=== PATIENT | male | born 1950 ===

== ENCOUNTER 2021-11-14 16:23 | Emergency (ER) | payer OTHER ==
[2021-11-14] MEDS ORDERED: LORazepam 2 MG/ML SDV IVPUSH ONE (17:34)
[2021-11-14] MEDS ORDERED: LORazepam 2 MG/ML SDV ONE (17:44)
== END 2021-11-14 18:30 ==
LOC: LB.ED 16:23
DX: R41.0 Disorientation, unspecified (principal); E78.00 Pure hypercholesterolemia, unspecified; I10 Essential (primary) hypertension; Z72.0 Tobacco use; Z79.82 Long term (current) use of aspirin; Z79.01 Long term (current) use of anticoagulants
CPT/HCPCS: 36415; 70450; 80053; 84484; 85025; 85610; 93005; 96374; 99285-25; A0425; A0429; J2060; U0002